=== PATIENT | female | born 2000 | race Caucasian/White ===

== ENCOUNTER 2024-02-14 00:39 | Inpatient (IN) ==
[2024-02-14] MEDS ORDERED: SODIUM CHLORIDE 0.9% 250 ML IV PRN ×3 (00:47→01:34)
--- NOTE | 2024-02-14 00:51 | Emergency Department Note ---
Impression & Plan hemorrhage, Vaginal bleeding ED Provider Note NAME: CHHAYA VICTOR AGE: 23 SEX: F : 2000 ARRIVES VIA: Ambulance INFORMANT: Patient ED PROVIDER(S): Stewart Schilling DO CHIEF COMPLAINT: vaginal bleeding HPI: Patient is a 23-year-old female who presents to the ER for vaginal bleeding. She delivered at 2013. Since the delivery she has been having persistent vaginal bleeding. They got part of the placenta out but they felt as though the other part was stuck. Plastic Cutter attempted to eventually remove this and the bleeding did decrease. Pressures per EMS were low in the 70s to 80s. They gave a total of 2.3 L prior to arrival. Patient denies any headache or change in vision. Admits to vaginal and abdominal pain. No dysuria, urgency, or frequency. No other exacerbating or remitting factors. ADDITIONAL HISTORY OBTAINED: Per HPI Chronic Medical/Social Conditions Affecting Care: Per HPI PAST MEDICAL HISTORY:See Below PAST SURGICAL HISTORY:See Below FAMILY HISTORY:See Below SOCIAL HISTORY:See Below HOME MEDICATIONS:See Below ALLERGIES:See Below VITALS:See Below PHYSICAL EXAMINATION: GENERAL: Sitting up in bed, alert, pale appearing, disheveled EYE EXAM: normal conjunctiva. OROPHARYNX: mucous membranes are moist LUNGS: Clear to auscultation. Normal chest wall mechanics HEART: no murmurs, S1 normal and S2 normal ABDOMEN: abdomen soft, no diffuse tenderness and a slightly firm uterus below the umbilicus. PERIANESTHESIA MANAGER: No active vaginal bleeding visualized. SKIN: no rashes and no bruising UPPER EXTREMITIES: upper extremities are grossly normal. LOWER EXTREMITIES: No pitting edema. NEURO EXAM: Normal sensorium MEDICAL DECISION MAKING: Patient is a 23-year-old female who presents ER for hemorrhage. Received medical management call and patient was hypotensive and brought in. Received 2.3 L prior to arrival. IV was established and blood work was obtained. Labs show mild leukocytosis of 15,000. Hemoglobin was 6.9. BMP along with LFTs bilirubin was unremarkable. Patient was typed and crossed and ordered 1 unit. Patient was seen and evaluated in a [address] Cavazos who was present at bedside upon arrival. Patient was rapidly assessed and the decision was made as there is no active hemorrhage to take patient to L&D. Patient was taken up prior to the result of all the labs. I did order 1 unit of PRBC after talking with SCHOOL DIRECTOR who agreed. Consent was not done and will need to be obtained in L&D. Pressures while in the ER were greater than 100. Heart rate was 70s to 90s. Consults/Care Managements Discussions: Per MDM Triage Nursing notes reviewed. Limited review of prior medical records performed Vital Signs: reviewed and remarkable for tachycardic Differential diagnosis: Differential diagnoses includes but is not limited to gastritis, peptic ulcer disease, GERD, gallbladder disease, pancreatitis, small bowel obstruction, appendicitis, diverticulitis, hernia, urinary tract infection, torsion, /ectopic (if female), perforation, trauma, infectious. ER treatment provided: See below Diagnostics interpreted by me include EKG and cardiac monitoring as listed below: -Cardiac Monitoring: An order was placed for continuous cardiac monitoring. The monitor shows a rate of 101 with sinus rhythm. -ECG: Sinus rhythm rate of 90 Normal axis No PVCs QTc 413 -Laboratory studies:Interpreted by me as stated above in MDM and shown below. Imaging studies: Xrays: As interpreted by me:none CTs show: none Procedures:none Critical Care: None Past Med/Surg History Problem List (Updated 02/14/24 @ 01:28 by Stewart Schilling DO) Vaginal bleeding (Acute) hemorrhage (Acute) Social History Smoking Status: Never smoker Preferred Language: Setswana Feels Safe at Home: Yes Results & Data (ED) Vital Signs Vital Signs - 24 hr 02/14/24 00:41 02/14/24 00:42 02/14/24 00:42 Temperature 36.6 C Temperature Source Oral Pulse Rate 76 Respiratory Rate 18 Respiratory Effort / Characteristics Non-Labored Spontaneous Respiratory Depth Normal Respiratory Pattern Regular Blood Pressure 110/64 110/64 110/64 Blood Pressure Mean 79 87 87 Blood Pressure Position Sitting Pulse Oximetry 96 Oxygen Delivery Method Room Air Sepsis Recent Fever Within 48 Hours No Sepsis New/Unexplained Change in Mental Status N/A Sepsis Action Taken by Nursing No Action Required 02/14/24 00:44 Temperature Temperature Source Pulse Rate 103 H Respiratory Rate Respiratory Effort / Characteristics Respiratory Depth Respiratory Pattern Blood Pressure Blood Pressure Mean Blood Pressure Position Pulse Oximetry Oxygen Delivery Method Sepsis Recent Fever Within 48 Hours Sepsis New/Unexplained Change in Mental Status Sepsis Action Taken by Nursing Laboratory Data 02/14/24 00:46 02/14/24 00:46 Lab Results 02/14/24 Range/Units 00:46 WBC 15.93 H (4.8-10.8) K/ul RBC 2.39 L (4.20-5.40) M/uL Hgb 6.9 L* (12.0-16.0) g/dl POC Hgb 6.1 L* (12.0-16.0) g/dl Hct 21.6 L (37.0-47.0) % POC Hct 18 L* (37-47) % MCV 90.4 (80.0-100.0) fL MCH 28.9 (25.0-34.0) pg MCHC 31.9 L (32.0-36.0) g/dL RDW Std Deviation 45.4 (36.4-46.3) fL RDW Coeff of Lewis 13.7 (11.5-14.5) % Plt Count 198 (130-400) K/uL MPV 9.7 (9.4-12.4) fL POC Sodium 134 L (135-144) mmol/L Sodium 134 L (136-145) mmol/L POC Potassium 3.6 (3.3-5.0) mmol/L Potassium 3.7 (3.5-5.1) mmol/L POC Chloride 101 (101-112) mmol/L Chloride 105 (98-107) mmol/L Carbon Dioxide 22 (21-32) mmol/L POC Total CO2 20 L (24-31) mmol/L Anion Gap 7 (3-11) POC Anion Gap 18.0 (16-25) mmol/L POC BUN 11 (7-18) mg/dl BUN 13 (6-23) mg/dl Creatinine 0.78 (0.6-1.2) mg/dl POC Creatinine 0.8 (0.6-1.3) mg/dl Est Cr Clr Drug Dosing Not Reportable eGFR 108.70 BUN/Creatinine Ratio 16.7 (10-20) Glucose 132 H (70-99(Fasting)) mg/dl POC Glucose (other) 130 H (70-99) mg/dl Calcium 8.5 L (8.6-10.3) mg/dl POC Ioniz Calcium Chayito 1.25 (1.12-1.32) mmol/l Total Bilirubin 0.2 (0.2-1.0) mg/dl AST 13 (13-39) U/L ALT 9 (7-52) U/L Alkaline Phosphatase 78 (34-104) U/L Total Protein 4.2 L (6.0-8.3) gm/dl Albumin 2.4 L (3.4-5.0) gm/dl Globulin 1.8 L (2.5-4.0) gm/dl Albumin/Globulin Ratio 1.3 (0.9-2) Blood Type A Positive Crossmatch See Detail Discharge Plan Visit Data Chief Complaint: Vaginal Bleeding Stated Complaint: HEMORRHAGE ED Provider: Stewart Schilling Discharge Problem: hemorrhage, Vaginal bleeding Patient Disposition: Admitted As Inpatient Discharge Instructions Interventions: ED Discharge Assessment Last Done: 02/14/24 00:56 Forms Stand Alone Forms: [facility] Referrals Referrals: PCP,NO [Primary Care Provider] -
[2024-02-14] MEDS: OXYTOCIN 10 UNITS/ML VIAL ONE (00:54)
[2024-02-14 01:00] LABS: iSTAT Creatinine 0.8 mg/dl (0.6-1.3); iSTAT Hemoglobin 6.1 g/dl (12.0-16.0); iSTAT Ionized Calcium 1.25 mmol/l (1.12-1.32); iSTAT Potassium 3.6 mmol/L (3.3-5.0)
[2024-02-14 01:05] LABS: Hematocrit (blood only) 21.6 % (37.0-47.0); Hemoglobin 6.9 g/dl (12.0-16.0); Mean Corpuscular Hemoglobin 28.9 pg (25.0-34.0); Mean Corpuscular Hgb Conc 31.9 g/dL (32.0-36.0); Mean Corpuscular Volume 90.4 fL (80.0-100.0); Mean Platelet Volume 9.7 fL (9.4-12.4); Platelet Count 198 K/uL (130-400); RDW Coefficient of Variation 13.7 % (11.5-14.5); RDW Standard Deviation 45.4 fL (36.4-46.3); Red Blood Count 2.39 M/uL (4.20-5.40); White Blood Count 15.93 K/ul (4.8-10.8)
[2024-02-14 01:19] LABS: Alanine Aminotransferase 9 U/L (7-52); Albumin Globulin Ratio 1.3 (0.9-2); Albumin Level 2.4 gm/dl (3.4-5.0); Alkaline Phosphatase 78 U/L (34-104); Anion Gap 7 (3-11); Aspartate Aminotransferase 13 U/L (13-39); BUN Creatinine Ratio 16.7 (10-20); Bilirubin,Total 0.2 mg/dl (0.2-1.0); Blood Urea Nitrogen 13 mg/dl (6-23); Calcium 8.5 mg/dl (8.6-10.3); Carbon Dioxide 22 mmol/L (21-32); Chloride 105 mmol/L (98-107); Globulin 1.8 gm/dl (2.5-4.0); Glucose 132 mg/dl (70-99(Fasting)); Potassium 3.7 mmol/L (3.5-5.1); Sodium 134 mmol/L (136-145); Total Protein 4.2 gm/dl (6.0-8.3)
[2024-02-14] MEDS: OXYTOCIN 30 UNITS/NSS 30 UNITS/500 ML BAG IV PRN (01:20)
--- NOTE | 2024-02-14 01:21 | History & Physical Report ---
Date of Service February 14, 2024 History of Present Illness Primary Care Provider: NO PCP 23yo presents via EMS from [facility] associated with the [facility] in [place]. Reportedly patient delivered a viable full term at 2013, and was then noted to deliver 1/2 of the placenta within the next 20 min. The informatics specialist reportedly extracted the remainder manually. The informatics specialist was not able to feel confident that all placenta was removed, and told the patient she needed transfer to a hospital. She sent the placenta with the patient to the hospital via EMS, accompanied only by her . The stayed with Diamond Cleaver "Shanti" at [place] and the patient feels confident it will be fed and well cared for. Patient says that she noted immediate improvement in both her bleeding and her pain levels once the informatics specialist removed the remainder of the clot, but she accepted the informatics specialist's direction to transfer to hospital regardless. Patient's AMPLE history taken in ER reveals the above events, no medications at home nor given at the [facility] ("we only use herbs, I had some herbs but no pitocin or medicine"), no known past medical history or conditions outside of , last ate and drank while laboring at the [facility], and no allergies. OBHx: #1 uncomplicated #2 uncomplicated, but followed by onset of heavy bleeding 3 weeks , went to hospital, removed retained placenta, received Txfn. #3 uncomplicated #4 current delivery with ?retained placenta manually removed. Pre-arrival report was that she bled 3-4 "liters," but on arrival EMS/patient note she is estimated to have bled "3-4 pints" in the four hours she was at the [facility] . EMS reports she was given 2L of LR at the [facility] and 2.3L of NSS in the ambulance en route. The patient remained alert and responsive throughout transport, though BP at times was 80s systolic. I met the ambulance outside the ER and received report while walking the patient into [facility]. She was pale skinned but had pink color to her lips, thin habitus, and alert/conversant. Transferred to ER [facility], applied EKG stickers and pulse ox, and vitals initially: 110/64, P77, O2 97%, RR 18. I-stat labs revealed initial Hgb 6.1g. Two 18g IV sites were established by nursing. I performed a vaginal exam, no major lacerations apparent, vaginal vault cleared of approx a fistful/1c of clot, after which cervix was palpable without any further solid material inside. Uterine fundus was firm and 1cm below umbilicus. Bedside US was performed and showed uterus with some clot, no immediately obvious residual placenta. There was no significant active vaginal bleeding after the clot was removed. Given patient hemodynamically stable, and no active hemorrhage, decision was made to move patient to [facility] room for further care. On arrival, patient continued to be hemodynamically stable, and no significant lochia. Uterine fundus remained below umbilicus and firm. Formal labs resulted and Hgb 6.9 noted. Placenta, disrupted, was reassembled for exam and appears to be completely present. Discussed that given lack of bleeding, firm fundus, and apparently complete placenta, will likely not need a D&C. Does likely need transfusion and patient accepts 2u pRBC. Allergies Allergy/AdvReac Type Severity Reaction Status Date / Time No Known Allergies Allergy Unverified 02/14/24 01:36 Patient History Social History Smoking Status: Never smoker Preferred Language: Kyrgyz Feels Safe at Home: Yes Results & Data Vital Signs (Past 12 Hours) Vital Signs Temp Pulse Resp BP Pulse Ox O2 Del Method 02/14/24 00:44 103 H 02/14/24 00:42 110/64 02/14/24 00:42 110/64 02/14/24 00:41 97.9 F 76 18 110/64 96 Room Air Coding Level of Care Code 69266 INT INP/OBS CARE 3/75MIN
[2024-02-14] MEDS ORDERED: bisacodyL 10 MG SUPP PR PRN (01:23)
[2024-02-14] MEDS ORDERED: BENZOCAINE 20% SPRY 85 APPLN/85 GM CAN EXT PRN ×2 (01:23→01:34)
[2024-02-14] MEDS ORDERED: DIPHTHER/TETAN/PERTUS Vaccine (Tdap, Adol/Adult) 0.5mL IM ONE (01:23)
[2024-02-14] MEDS ORDERED: IBUPROFEN 600 MG TAB PO PRN ×2 (01:23→01:34)
[2024-02-14] MEDS ORDERED: oxyCODONE/ACETAMINOPHEN 5mg/325mg TAB PO PRN ×2 (01:23→01:34)
[2024-02-14] MEDS ORDERED: ACETAMINOPHEN 325 MG TAB PO PRN ×2 (01:23→01:34)
[2024-02-14] MEDS ORDERED: HYDROCORTISONE ACETATE 25 MG SUPP PR PRN ×2 (01:23→01:34)
[2024-02-14] MEDS ORDERED: OXYTOCIN 30 UNITS/NSS 30 UNITS/500 ML BAG IV PRN (01:23)
[2024-02-14 01:27] LABS: Basophils # (auto) 0.02 K/uL (0.00-0.20); Basophils % (auto) 0.1 %; Eosinophils # (auto) 0.01 K/uL (0.00-0.50); Eosinophils % (auto) 0.1 %; Immature Granulocytes % (auto) 0.6 %; Lymphocytes # (auto) 1.03 K/uL (1.20-3.40); Lymphocytes % (auto) 6.5 %; Monocytes # (auto) 0.83 K/uL (0.11-0.59); Monocytes % (auto) 5.2 %; Neutrophils # (auto) 13.94 K/uL (1.40-6.50); Neutrophils % (auto) 87.5 %; RBC Morphology Unremarkable
[2024-02-14] MEDS ORDERED: Patient's ALLERGY Info needs ENTERED SCH (01:30)
[2024-02-14] MEDS: DIPHTHER/TETAN/PERTUS Vaccine (Tdap, Adol/Adult) 0.5mL IM ONE (01:50)
[2024-02-14] MEDS ORDERED: AMPICILLIN SOD/SULBACTAM SOD 3 GM VIAL IV SCH (02:00)
[2024-02-14] MEDS: AMPICILLIN/SULBACTAM SOD 3,000 MG/100 ML BAG IV SCH (02:18)
[2024-02-14 04:20] VITALS: RESP 16; TEMP 97.9
[2024-02-14 05:51] VITALS: O2SAT 98
[2024-02-14 07:31] VITALS: BP 108/62; PULSE 85
[2024-02-14] MEDS ORDERED: DOCUSATE SODIUM 100 MG CAP PO SCH (08:00)
[2024-02-14] MEDS ORDERED: PRENATAL VITAMIN 1 TAB PO SCH (08:00)
[2024-02-14] MEDS: DOCUSATE SODIUM 100 MG CAP PO SCH (08:51)
[2024-02-14] MEDS: PRENATAL VITAMIN 1 TAB PO SCH (08:51)
--- NOTE | 2024-02-14 15:15 | Electrocardiogram Report ---
Test Reason : Blood Pressure : */* mmHG Vent. Rate : 90 BPM Atrial Rate : 90 BPM P-R Int : 148 ms QRS Dur : 74 ms QT Int : 338 ms P-R-T Axes : 65 86 51 degrees QTcB Int : 413 ms Normal sinus rhythm Normal ECG No previous ECGs available Confirmed by Aleksandar Serna ([id number]) on 02/14/2024 3:14:33 PM Referred By: Jamilah Cavazos Confirmed By: Aleksandar Serna
[2024-02-15] MEDS ORDERED: bisacodyL 10 MG SUPP PR PRN (01:34)
[2024-02-15] MEDS ORDERED: bisacodyL 5 MG TABEC PO SCH ×2 (20:00)
--- NOTE | 2024-02-19 09:11 | Discharge Summary ---
Date of Service February 19, 2024 Admission HPI Per Admitting Provider 23yo presents via EMS from [facility] associated with the [facility] [place] in [place]. Reportedly patient delivered a viable full term infant at 2013, and was then noted to deliver 1/2 of the placenta within the next 20 min. The credit risk manager reportedly extracted the remainder manually. The credit risk manager was not able to feel confident that all placenta was removed, and told the patient she needed transfer to a hospital. She sent the placenta with the patient to the hospital via EMS, accompanied only by her . The infant stayed with Night Stocker "Shanti" at [place] and the patient feels confident it will be fed and well cared for. Patient says that she noted immediate improvement in both her bleeding and her pain levels once the credit risk manager removed the remainder of the clot, but she accepted the credit risk manager's direction to transfer to hospital regardless. Patient's AMPLE history taken in ER reveals the above events, no medications at home nor given at the [facility] ("we only use herbs, I had some herbs but no pitocin or medicine"), no known past medical history or conditions outside of , last ate and drank while laboring at the [facility], and no allergies. OBHx: #1 uncomplicated #2 uncomplicated, but followed by onset of heavy bleeding 3 weeks , went to hospital, removed retained placenta, received Txfn. #3 uncomplicated #4 current delivery with ?retained placenta manually removed. Pre-arrival report was that she bled 3-4 "liters," but on arrival EMS/patient note she is estimated to have bled "3-4 pints" in the four hours she was at the [facility] . EMS reports she was given 2L of LR at the [facility] and 2.3L of NSS in the ambulance en route. The patient remained alert and responsive throughout transport, though BP at times was 80s systolic. I met the ambulance outside the ER and received report while walking the patient into [facility]. She was pale skinned but had pink color to her lips, thin habitus, and alert/conversant. Transferred to ER [facility], applied EKG stickers and pulse ox, and vitals initially: 110/64, P77, O2 97%, RR 18. I-stat labs revealed initial Hgb 6.1g. Two 18g IV sites were established by nursing. I performed a vaginal exam, no major lacerations apparent, vaginal vault cleared of approx a fistful/1c of clot, after which cervix was palpable without any further solid material inside. Uterine fundus was firm and 1cm below umbilicus. Bedside US was performed and showed uterus with some clot, no immediately obvious residual placenta. There was no significant active vaginal bleeding after the clot was removed. Given patient hemodynamically stable, and no active hemorrhage, decision was made to move patient to [facility] room for further care. On arrival, patient continued to be hemodynamically stable, and no significant lochia. Uterine fundus remained below umbilicus and firm. Formal labs resulted and Hgb 6.9 noted. Placenta, disrupted, was reassembled for exam and appears to be completely present. Discussed that given lack of bleeding, firm fundus, and apparently complete placenta, will likely not need a D&C. Does likely need transfusion and patient accepts 2u pRBC. Discharge Data Consultations 02/14/24 01:13 ED Decision to Admit Stat Procedures Performed Transfusion of 2u pRBC Hospital Course (1) hemorrhage: Plan Patient received transfusion, demonstrated no excessive lochia, and requested to leave the hospital the morning after her arrival. Was discharged in good condition. Patient does not plan to f/u locally but was given info to allow her to do so if willing. She and FOB were counseled that with 2x retained placenta and PPH she should be extremely cautious about future pregnancies as the risk of recurrence is increased with each subsequent delivery. Coding Level of Care Code None Diagnoses hemorrhage O72.1
== END 2024-02-14 09:10 | disposition home or self-care (01) | DRG 769 ==
LOC: ED 00:39 → 4S1 01:27
DX: O72.1 Other immediate postpartum hemorrhage